=== PATIENT | male | born 1950 | race Caucasian/White ===

== ENCOUNTER 2016-11-22 11:09 | Inpatient (IN) | payer MEDICARE ==
[~2016-11-22] VITALS: Ht 167.6 cm; Wt 68.0 kg
[2016-11-22 12:43] LABS: BASOPHILS % 0.9 % (0.0-2.0); EOSINOPHILS % 9.2 % (0.0-5.0); HEMATOCRIT. 37.4 % (42.0-52.0); HEMOGLOBIN. 12.8 g/dL (14.0-18.0); LYMPHOCYTES % 15.3 % (20.0-50.0); MEAN CORPUSCULAR HEMOGLOBIN 32.3 pg (28.0-32.0); MEAN CORPUSCULAR VOLUME 94.6 fL (80.0-94.0); MEAN PLATELET VOLUME 7.5 fl (7.4-10.4); MONOCYTES % 6.6 % (2.0-8.0); PLATELET 201 x1000/uL (130-400); RED BLOOD CELL COUNT 3.95 mill/uL (4.7-6.1); RED CELL DISTRIBUTION WIDTH 13.8 % (11.6-14.6)
[2016-11-22 12:49] LABS: CHLORIDE 103 mEq/L (98-107)
[2016-11-22 12:51] LABS: PROTHROMBIN TIME 10.7 sec
[2016-11-22 12:54] LABS: CARBON DIOXIDE 28 mEq/L (21-32)
[2016-11-22 14:40] LABS: CLARITY URINE CLEAR (CLEAR); COLOR URINE YELLOW (YELLOW); GLUCOSE URINE NEGATIVE (NEGATIVE); KETONES URINE NEGATIVE (NEGATIVE); LEUKOCYTE ESTERASE URINE NEGATIVE (NEGATIVE); NITRITE URINE NEGATIVE (NEGATIVE); OCCULT BLOOD URINE TRACE (NEGATIVE); PROTEIN URINE NEGATIVE (NEGATIVE); SPECIFIC GRAVITY URINE 1.014 (1.005-1.030); UROBILINOGEN URINE 0.2 E.U./dL (0.2-1.0)
[2016-11-22] MEDS ORDERED: CLONIDINE 0.1MG TABLET PO ONE (14:45)
[2016-11-22] MEDS ORDERED: AMPICILLIN SOD/SULBACTAM NA 1.5 G in SODIUM CHLORIDE 0.9% 50 ML IV SCH (14:45)
[2016-11-22] MEDS ORDERED: NITROGLYCERIN 0.4MG TABLET SL SL PRN (15:45)
[2016-11-22] MEDS ORDERED: DOCUSATE SODIUM 100MG CAPSULE PO PRN (15:45)
[2016-11-22] MEDS ORDERED: KETOROLAC 15MG/ML VIAL IV PRN (15:45)
[2016-11-22] MEDS ORDERED: MAGNESIUM/ALUMINUM HYDROXIDE/SIMETHICONE 30ML UDC PO PRN (15:45)
[2016-11-22] MEDS ORDERED: DIPHENHYDRAMINE 50MG/ML VIAL IV PRN (15:45)
[2016-11-22] MEDS ORDERED: GUAIFENESIN 200MG/10ML SUGAR FREE UDC PO PRN (15:45)
[2016-11-22] MEDS ORDERED: CLONIDINE 0.1MG TABLET PO PRN (15:45)
[2016-11-22] MEDS ORDERED: TRAMADOL 50MG TABLET PO PRN (15:45)
[2016-11-22] MEDS ORDERED: ONDANSETRON HCL 4MG/2ML VIAL IV PRN (15:45)
[2016-11-22] MEDS ORDERED: AMLODIPINE 10MG TABLET PO SCH (15:45)
[2016-11-22] MEDS ORDERED: ACETAMINOPHEN 325MG TABLET PO PRN (15:45)
[2016-11-22] MEDS ORDERED: LORAZEPAM 2MG/ML CPJ IV PRN (15:45)
[2016-11-22] MEDS ORDERED: IPRATROPIUM/ALBUTEROL 0.5-3(2.5)MG/3ML NEB INH PRN (15:45)
[2016-11-22] MEDS ORDERED: HYDRALAZINE 20MG/ML VIAL IV ONE (16:15)
[2016-11-22] MEDS ORDERED: PIPERACILLIN/TAZ 3.375G PREMIX 50 ML IV NR (16:15)
[2016-11-22] MEDS ORDERED: VANCOMYCIN 1 G PREMIX 200 ML IV NR (16:15)
[2016-11-22 16:56] LABS: ETHANOL BLOOD < 10 mg/dL; HDL CHOLESTEROL 32 mg/dL (40-59); LDL CHOLESTEROL 99 mg/dL (5-100); TOTAL IRON BINDING CAPACITY 280 ug/dL (250-450)
[2016-11-22 17:17] LABS: FOLIC ACID (FOLATE) SERUM 12.3 ng/mL (>5.38)
[2016-11-22] MEDS ORDERED: NA PHOS,M-B/NA PHOS,DI-BA ENEMA 118ML PR PRN (20:00)
[2016-11-22] MEDS ORDERED: ZOLPIDEM TARTRATE 5MG TABLET PO PRN (20:00)
[2016-11-22] MEDS ORDERED: LISINOPRIL 20MG TABLET PO SCH (21:00)
[2016-11-22] MEDS ORDERED: METOPROLOL TARTRATE 25MG TABLET PO SCH (21:00)
[2016-11-22 22:38] VITALS: BP 155/94
[2016-11-23] MEDS ORDERED: PIPERACILLIN/TAZ 3.375G PREMIX 50 ML IV SCH (02:00)
[2016-11-23] MEDS ORDERED: VANCOMYCIN 1 G PREMIX 200 ML IV NR (03:00)
[2016-11-23] MEDS ORDERED: ZINC SULFATE 220 MG ( 50 ) CAPSULE PO SCH (09:00)
[2016-11-23] MEDS ORDERED: PANTOPRAZOLE SODIUM 40 MG/VIAL IV SCH (09:00)
[2016-11-23] MEDS ORDERED: ENOXAPARIN 40MG/0.4ML SYR SUBCUT SCH (09:00)
[2016-11-23 13:59] LABS: *AMPHETAMINES SCREEN URINE NEGATIVE (NEGATIVE); *BARBITURATES SCREEN URINE NEGATIVE (NEGATIVE); *BENZODIAZEPINES SCREEN URINE NEGATIVE (NEGATIVE); *COCAINE SCREEN URINE NEGATIVE (NEGATIVE); CANNABINOID URINE SCREEN NEGATIVE (NEGATIVE); METHADONE URINE SCREEN NEGATIVE (NEGATIVE); OPIATES URINE SCREEN NEGATIVE (NEGATIVE); PHENCYCLIDINE URINE SCREEN NEGATIVE (NEGATIVE)
== END 2016-11-22 23:30 | disposition left against medical advice (07) | DRG 603 ==
LOC: ER 12:29 → SUPCPDRO 15:30 → EDBEDREQSVC 16:13 → CANRESERV 18:26 → ENRESERV 18:26 → EDBEDREQSVC 19:56 → ENRESERV 22:14 → 6EST 22:14
PROVIDERS: ADMIT Internal Medicine; ATTEND Internal Medicine
DX: L03.317 Cellulitis of buttock (principal); L03.119 Cellulitis of unspecified part of limb; I71.4 Abdominal aortic aneurysm, without rupture; I10 Essential (primary) hypertension; D64.9 Anemia, unspecified; I16.0 Hypertensive urgency; F17.200 Nicotine dependence, unspecified, uncomplicated; Z53.21 Procedure and treatment not carried out due to patient leaving prior to being seen by health care provider
CPT/HCPCS: 36415; 71010; 72192; 73700; 80053; 80061; 80305; 81001; 82607; 82746; 83036; 83540; 83550; 83605; 85025; 85610; 87040; 93005; 96365; 96375; 99285; G0482; J0295; J0360; J2060; J2543; J3370